=== PATIENT | male | born 1995 | race Caucasian/White ===

== ENCOUNTER 2017-11-10 17:30 | Emergency (ER) | payer BC, OTHER ==
[~2017-11-10] VITALS: Ht 182.9 cm; Wt 65.8 kg
--- NOTE | 2017-11-10 18:42 | ED Head Injury ---
General Stated Complaint: HEAD INJ Source: patient Exam Limitations: no limitations History of Present Illness Date Seen by Provider: Nov 10, 2017 Time Seen by Provider: 18:25 Initial Comments This 22-year-old gentleman presents to the emergency room with complaints of symptoms related to head injury. He struck his head on a pipe upon standing from a bent position between noon and 13:00. Since then he has had significant pain on the posterior scalp, loss of appetite, somnolence, and difficulty with focusing his vision. He denies any confusion, nausea, vomiting, or other neurologic symptoms. He took ibuprofen 800 mg 2 doses. He reports his pain as 7/10. He denies loss of consciousness with this injury. Allergies and Home Medications Patient Home Medication List Home Medication List Reviewed: Yes Review of Systems Constitutional: see HPI Eyes: No Symptoms Reported Ears, Nose, Mouth, Throat: no symptoms reported Respiratory: no symptoms reported Cardiovascular: no symptoms reported Gastrointestinal: see HPI Genitourinary: no symptoms reported Musculoskeletal: no symptoms reported Skin: no symptoms reported Psychiatric/Neurological: See HPI Endocrine: No Symptoms Reported Hematologic/Lymphatic: No Symptoms Reported Past Aejpatx-Uvgjyx-Rtxmbl Hx Patient Social History Recent Foreign Travel: No Contact w/Someone Who Travel: No Seasonal Allergies Seasonal Allergies: No Past Medical History Surgeries: Yes (Jaw fracture repair) Respiratory: No Cardiac: No Neurological: No Reproductive Disorders: No Genitourinary: No Gastrointestinal: No Musculoskeletal: No Endocrine: No HEENT: No Cancer: No Psychosocial: No Integumentary: No Physical Exam Vital Signs Vital Signs - First Documented 11/10/17 18:11 Temp 97.8 Pulse 75 Resp 18 B/P (MAP) 119/72 (88) Pulse Ox 97 Capillary Refill : General Appearance: WD/WN, no apparent distress HEENT: PERRL/EOMI, normal ENT inspection, other (Tenderness to the posterior scalp) Neck: non-tender, normal inspection Cardiovascular: regular rate, rhythm, no edema, no murmur Respiratory: lungs clear, normal breath sounds, no respiratory distress, no accessory muscle use Extremities: normal inspection, no pedal edema Psychiatric: alert, oriented x 3 [place] Nerves: normal hearing, normal speech, PERRL Coordination/Gait: normal finger to nose, normal gait Motor/Sensory: no motor deficit, no sensory deficit Skin: normal color, warm/dry [place] Coma Score Best Eye Response: (4) Open Spontaneously Best Verbal Response: (5) Oriented Best Motor Response: (6) Obeys Commands [place] Total: 15 Progress/Results/Core Measures Progress Progress Note : Progress Note Patient does have some concussion symptoms but appears stable at this time. CT scan was not pursued as patient had no notable neurologic deficits and no significant exam findings. Return precautions and concussion precautions were discussed. See discharge instructions. Departure Impression Primary Impression: Concussion without loss of consciousness Qualified Codes: S06.0X0A - Concussion without loss of consciousness, initial encounter Disposition: HOME, SELF-CARE Condition: Improved Departure-Patient Inst. Decision time for Depature: 18:35 Referrals: NO,LOCAL PHYSICIAN (PCP) Primary Care Physician Patient Instructions: Concussion in Adults Add. Discharge Instructions: Drink plenty of clear liquids and get plenty of rest. For pain he may take ibuprofen up to 600 mg every 6 hours as needed. Add Tylenol (acetaminophen) up to 1000 g every 6 hours as needed for pain not controlled by ibuprofen. Rest is much as possible over the next 24 hours. Gradually advance activity as symptoms allow. If any activity causes and increasing concussion symptoms such as nausea, confusion, headache, blurry vision, etc., stop that activity and rest. Return to the emergency room if you have worsening symptoms. Avoid any activity that predisposes you to head injury such as ATV use, horseback riding, use of heights, contact sports, etc. until least 7 days after concussion symptoms resolve. Always wear a helmet when doing high-risk activity such as writing ATV use. Work/School Note: Work Release Form Date Seen in the Emergency Department: Nov 10, 2017 Return to Work: Nov 12, 2017 Other Restrictions Listed Below: Stop activities that cause concussion symptoms to worsen BRANDIE COLORADO MD Nov 10, 2017 18:42
[2017-11-10 18:56] VITALS: BP 119/72
== END 2017-11-10 18:57 | disposition home or self-care (01) ==
LOC: EDUNIT# 17:30 → ER 17:32
DX: S06.0X0A Concussion without loss of consciousness, initial encounter (principal); R40.2142 Coma scale, eyes open, spontaneous, at arrival to emergency department; R40.2252 Coma scale, best verbal response, oriented, at arrival to emergency department; R40.2362 Coma scale, best motor response, obeys commands, at arrival to emergency department; W22.09XA Striking against other stationary object, initial encounter
CPT/HCPCS: 99282

== ENCOUNTER → 2019-09-25 | Outpatient (REF) ==
--- NOTE | 2019-09-25 16:07 | Diagnostic Imaging Report ---
INDICATION: Smashed middle phalanx with a rock. TECHNIQUE: PA view of left hand along with two additional views of left middle digit, 03:57 p.m. CORRELATION STUDY: None. FINDINGS: Soft tissue defect of the distal aspect of the third finger. There is no definitive soft tissue foreign body present. Underlying osseous structures appear to be intact. The remainder of the left hand is otherwise intact as well. Joint spaces are maintained. IMPRESSION: 1. Soft tissue defect of the distal aspect of the left middle finger. No soft tissue foreign body or underlying acute bony abnormality. Dictated by: Dictated on workstation # [id number]
== END | disposition home or self-care (01) ==
LOC: OCC 15:37
PROVIDERS: ATTEND Nurse Practitioner Family
DX: Z01.818 Encounter for other preprocedural examination (principal)
CPT/HCPCS: 73140